=== PATIENT | female | born 1960 | race Caucasian/White ===

== ENCOUNTER 2023-07-07 14:40 | Emergency (ER) | payer MEDICARE ==
[~2023-07-07] VITALS: Ht 160 cm; Wt 61.6 kg
[2023-07-07] MEDS ORDERED: AZO1CAP2 PO (14:57)
[2023-07-07] MEDS ORDERED: METF-838 PO (14:57)
[2023-07-07] MEDS ORDERED: POTA-136 PO (14:57)
[2023-07-07] MEDS ORDERED: ENTR1TAB PO (14:57)
[2023-07-07] MEDS ORDERED: GLIP10TA6 PO (14:57)
[2023-07-07] MEDS ORDERED: ASPI81TA26 PO (14:57)
[2023-07-07] MEDS ORDERED: HYDR-3363 PO (14:57)
[2023-07-07] MEDS ORDERED: CLON0.5T17 PO (14:57)
[2023-07-07] MEDS ORDERED: THERTAB52 PO (14:57)
[2023-07-07] MEDS ORDERED: FARX1TAB3 PO (14:57)
[2023-07-07] MEDS ORDERED: OXYB10TA23 PO (14:57)
[2023-07-07] MEDS ORDERED: ATOR80TA59 PO (14:57)
[2023-07-07] MEDS ORDERED: DULO1CAP4 PO (14:57)
[2023-07-07] MEDS ORDERED: TORS20TA2 PO (14:57)
[2023-07-07] MEDS ORDERED: OMEP40CA4 PO (14:57)
[2023-07-07] MEDS ORDERED: ATEN25TA PO (14:57)
[2023-07-07] MEDS: fentaNYL 100 MCG/2 ML INJECTION IV ONE (17:01)
[2023-07-07 17:08] LABS: HEMATOCRIT 41.6 % (36.0-47.0); HEMOGLOBIN 13.6 g/dl (12.0-15.5); MEAN CORPUSCULAR HEMOGLOBIN 31.8 pg (27.0-33.0); MEAN CORPUSCULAR HGB CONC 32.7 g/dl (32.0-36.5); MEAN CORPUSCULAR VOLUME 97.2 fl (80.0-96.0); PLATELET COUNT, AUTOMATED 235 10^3/uL (150-450); RED BLOOD COUNT 4.28 10^6/uL (4.00-5.40); WHITE BLOOD COUNT 16.7 10^3/uL (4.0-10.0)
[2023-07-07] MEDS: LIDOCAINE 5% (LIDODERM) PATCH TD ONE (17:12)
[2023-07-07 17:38] LABS: BLOOD UREA NITROGEN 22 MG/DL (9-23); CALCIUM LEVEL 9.2 MG/DL (8.3-10.6); CARBON DIOXIDE LEVEL 26 MMOL/L (20-31); CHLORIDE LEVEL 101 MMOL/L (98-107); CREATININE FOR GFR 0.77 MG/DL (0.55-1.30); GLOMERULAR FILTRATION RATE > 60.0 (>45); GLUCOSE, FASTING 126 MG/DL (74-106); POTASSIUM SERUM 4.6 MMOL/L (3.5-5.1); SODIUM LEVEL 137 MMOL/L (136-145)
[2023-07-07] MEDS ORDERED: HYDR-3713 PO (17:48)
[2023-07-07 17:50] VITALS: BP 150/67; TEMP 97.9; O2SAT 98
[2023-07-07] MEDS: MORPHINE 4 MG/ML 1ML VIAL IV ONE (18:03)
[2023-07-07] MEDS: ONDANSETRON 4MG 2ML VIAL IV ONE (18:03)
== END 2023-07-07 18:34 | disposition home or self-care (01) ==
LOC: M ED 14:40
DX: S42.201A Unspecified fracture of upper end of right humerus, initial encounter for closed fracture (principal); Y92.9 Unspecified place or not applicable; Y93.9 Activity, unspecified; Y99.9 Unspecified external cause status; W19.XXXA Unspecified fall, initial encounter; I25.119 Atherosclerotic heart disease of native coronary artery with unspecified angina pectoris; I25.2 Old myocardial infarction; E11.9 Type 2 diabetes mellitus without complications; Z88.8 Allergy status to other drugs, medicaments and biological substances; Z79.899 Other long term (current) drug therapy; Z79.1 Long term (current) use of non-steroidal anti-inflammatories (NSAID); Z79.84 Long term (current) use of oral hypoglycemic drugs; Z79.810 Long term (current) use of selective estrogen receptor modulators (SERMs)
CPT/HCPCS: 73030; 73060; 80048; 85027; 86850; 86900; 86901; 96374; 96375; 99284; J2405; J3010

== ENCOUNTER 2023-07-09 14:58 | Inpatient (IN) | payer MEDICARE ==
[~2023-07-09] VITALS: Ht 157.5 cm; Wt 63.3 kg
[~2023-07-09 14:58] MED LIST: ASPI81TA26 PO; ATEN25TA PO; ATOR80TA59 PO; AZO1CAP2 PO; CLON0.5T17 PO; DULO1CAP4 PO; ENTR1TAB PO; FARX1TAB3 PO; GLIP10TA6 PO; HYDR-3363 PO; HYDR-3713 PO; METF-838 PO; OMEP40CA4 PO; OXYB10TA23 PO; POTA-136 PO; THERTAB52 PO; TORS20TA2 PO
[2023-07-09 16:20] VITALS: BP 181/95; TEMP 98.4; O2SAT 98
[2023-07-09] MEDS ORDERED: ACETAMINOPHEN TAB 650MG DOSE (2X325MG) PO PRN (18:05)
[2023-07-09] MEDS ORDERED: GLUCOSE 4 GM CHEW PO PRN (18:05)
[2023-07-09] MEDS ORDERED: DEXTROSE 50% 50ML SYRINGE IV PRN (18:05)
[2023-07-09] MEDS ORDERED: PERCOCET 5MG/325MG TAB PO PRN (18:05)
[2023-07-09] MEDS ORDERED: GLUCAGON INJ 1MG VIAL SC PRN (18:05)
[2023-07-09] MEDS: MORPHINE 4 MG/ML 1ML VIAL IV PRN (18:40)
[2023-07-09 19:00] LABS: BASO % 0.3 % (0.0-1.0); EOS # 0.3 10^3/uL (0.0-0.5); EOS % 2.2 % (0.0-3.0); HEMATOCRIT 37.9 % (36.0-47.0); HEMOGLOBIN 12.6 g/dl (12.0-15.5); LYMPH # 2.2 10^3/uL (1.5-5.0); LYMPH % 19.3 % (24.0-44.0); MEAN CORPUSCULAR HEMOGLOBIN 32.6 pg (27.0-33.0); MEAN CORPUSCULAR HGB CONC 33.2 g/dl (32.0-36.5); MEAN CORPUSCULAR VOLUME 98.2 fl (80.0-96.0); MONO # 0.7 10^3/uL (0.0-0.8); NEUTROPHILS # 8.3 10^3/uL (1.5-8.5); NEUTROPHILS % 71.9 % (36.0-66.0); PLATELET COUNT, AUTOMATED 233 10^3/uL (150-450); RED BLOOD COUNT 3.86 10^6/uL (4.00-5.40); WHITE BLOOD COUNT 11.6 10^3/uL (4.0-10.0)
[2023-07-09 19:11] LABS: INR 0.93; PROTHROMBIN TIME 12.2 SECONDS (12.5-14.5)
[2023-07-09 19:24] LABS: ALBUMIN 3.5 G/DL (3.2-5.2); ALKALINE PHOSPHATASE 150 U/L (46-116); ALT/SGPT 88 U/L (7.0-40); AST/SGOT 131 U/L (<34); BILIRUBIN,TOTAL 0.3 MG/DL (0.3-1.2); BLOOD UREA NITROGEN 24 MG/DL (9-23); CALCIUM LEVEL 9.3 MG/DL (8.3-10.6); CARBON DIOXIDE LEVEL 25 MMOL/L (20-31); CHLORIDE LEVEL 102 MMOL/L (98-107); CREATININE FOR GFR 0.87 MG/DL (0.55-1.30); GLOMERULAR FILTRATION RATE > 60.0 (>45); GLUCOSE, FASTING 76 MG/DL (74-106); MAGNESIUM LEVEL 1.6 MG/DL (1.8-2.4); PHOSPHORUS LEVEL 3.1 MG/DL (2.4-5.1); POTASSIUM SERUM 4.3 MMOL/L (3.5-5.1); SODIUM LEVEL 136 MMOL/L (136-145); TOTAL PROTEIN 6.7 G/DL (5.7-8.2)
[2023-07-09] MEDS ORDERED: atenoloL 50 MG TAB PO ONE (19:45)
[2023-07-09 20:00] VITALS: BP 178/89; TEMP 98.1; O2SAT 98
[2023-07-09] MEDS ORDERED: HYDROMORPHONE HCL 0.5 MG/ 0.5 ML SYRINGE IV PRN (20:35)
[2023-07-09] MEDS: INSULIN LISPRO (NovoLOG) PER UNIT SC SCH (21:00)
[2023-07-09] MEDS: TORSEMIDE 20 MG TAB PO ONE (21:22)
[2023-07-09] MEDS: HYDROMORPHONE HCL 0.5 MG/ 0.5 ML SYRINGE IV PRN (21:24)
[2023-07-09] MEDS: MAG SULF 1GM/100ML (MAG RUN) 1 GM in IV 1 EA IV SCH (21:24)
[2023-07-09] MEDS ORDERED: HYDR-4571 PO (21:37)
[2023-07-09] MEDS ORDERED: HOME MED LIST COMPLETE! XX SCH (21:50)
[2023-07-09] MEDS: ATORVASTATIN 20 MG TAB PO SCH (22:56)
[2023-07-09] MEDS: DULoxetine 20MG CAP (CYMBALTA) PO ONE (22:56)
[2023-07-09] MEDS: ENTRESTO 24-26MG TABLET (SACUBITRIL/VALSARTAN) PO ONE (22:58)
[2023-07-09] MEDS: atenoloL 25 MG TAB PO SCH (22:58)
[2023-07-10] VITALS (8 sets, daily range): BP systolic 99–165; BP diastolic 50–81; TEMP 97.3–98.1; O2SAT 90–96
[2023-07-10] MEDS: METHOCARBAMOL 1,000 MG/10 ML VIAL IV ONE
[2023-07-10] MEDS: LIDOCAINE 5% (LIDODERM) PATCH TD SCH (00:53)
[2023-07-10] MEDS: clonazePAM 0.5 MG TAB PO PRN (01:33)
[2023-07-10] MEDS: INSULIN LISPRO (NovoLOG) PER UNIT SC SCH (07:30)
[2023-07-10] MEDS: MIDAZOLAM INJ 2MG/2ML VIAL IV PRN (08:43)
[2023-07-10] MEDS: fentaNYL 100 MCG/2 ML INJECTION IV PRN (08:43)
[2023-07-10] MEDS ORDERED: fentaNYL 100 MCG/2 ML INJECTION As Ordered ONE (08:45)
[2023-07-10] MEDS ORDERED: MIDAZOLAM INJ 2MG/2ML VIAL As Ordered ONE (08:45)
[2023-07-10] MEDS: dexAMETHasone 10MG/1ML VIAL PRES.FREE PN ONE (08:54)
[2023-07-10] MEDS: ROPIvacaine 0.5% 30ML VIAL PN ONE (08:54)
[2023-07-10] MEDS: DOCUSATE SODIUM 100MG CAPSULE PO SCH (09:00)
[2023-07-10] MEDS: OMEPRAZOLE 20MG CAP PO SCH (09:00)
[2023-07-10] MEDS: ceFAZolin 2 GM/D5W 50 ML IV BAG As Ordered ONE (09:40)
[2023-07-10] MEDS ORDERED: GLYCOPYRROLATE INJ 0.2 MG/ML 2 ML VIAL As Ordered ONE (09:53)
[2023-07-10] MEDS ORDERED: ePHEDrine SULFATE 25 MG/5 ML(5MG/ML) SYRINGE As Ordered ONE (09:57)
[2023-07-10] MEDS ORDERED: VASOPRESSIN INJ 20UNITS/ML 1ML VIAL As Ordered ONE (09:57)
[2023-07-10] MEDS ORDERED: PHENYLephrine 500MCG 5ML (100MCG/ML) SYRINGE As Ordered ONE (10:09)
[2023-07-10] MEDS: LIDOCAINE W/EPINEPHRINE 1% 20ML VIAL As Ordered ONE (10:15)
[2023-07-10] MEDS ORDERED: PHENYLEPHRINE 10MG/ML 1ML VIAL As Ordered ONE (10:58)
[2023-07-10] MEDS: VANCOMYCIN 500MG/10ML VIAL As Ordered ONE (11:30)
[2023-07-10] MEDS: TRANEXAMIC ACID 100 MG/ML 10ML VIAL As Ordered ONE (11:30)
[2023-07-10] MEDS ORDERED: KETOROLAC 60MG 2ML VIAL As Ordered ONE (12:04)
[2023-07-10] MEDS ORDERED: ONDANSETRON 4MG 2ML VIAL As Ordered ONE (12:05)
[2023-07-10] MEDS ORDERED: MEPERIDINE 25 MG/ML 1ML VIAL IV PRN (12:30)
[2023-07-10] MEDS: LR 1,000 ML IV SCH (12:30)
[2023-07-10] MEDS ORDERED: diphenhydrAMINE 50MG/ML VIAL IV PRN ×2 (12:30→13:10)
[2023-07-10] MEDS ORDERED: METOCLOPRAMIDE INJ 10MG/2ML VIAL IV PRN (12:30)
[2023-07-10] MEDS ORDERED: fentaNYL 100 MCG/2 ML INJECTION IV PRN (12:30)
[2023-07-10] MEDS ORDERED: ONDANSETRON 4MG 2ML VIAL IV PRN ×2 (12:30→13:10)
[2023-07-10] MEDS ORDERED: HYDROMORPHONE HCL 0.5 MG/ 0.5 ML SYRINGE IV PRN (12:30)
[2023-07-10] MEDS ORDERED: ACETAMINOPHEN TAB 650MG DOSE (2X325MG) PO PRN (13:10)
[2023-07-10] MEDS ORDERED: oxyCODONE 5MG TAB PO PRN (13:10)
[2023-07-10] MEDS: ceFAZolin SOD 2 GM in IV 1 EA IV SCH (14:44)
[2023-07-10] MEDS ORDERED: PILL CUTTER 1 EACH XX ONE (15:20)
[2023-07-10] MEDS: HYDROmorphone 2 MG TAB PO PRN (15:23)
[2023-07-10] MEDS: TORSEMIDE 20 MG TAB PO SCH (17:00)
[2023-07-10] MEDS: KETOROLAC 30 MG/ML 1ML VIAL IV SCH (17:58)
[2023-07-10] MEDS: MORPHINE 4 MG/ML 1ML VIAL IV PRN (17:59)
[2023-07-10] MEDS: ENTRESTO 24-26MG TABLET (SACUBITRIL/VALSARTAN) PO SCH (20:56)
[2023-07-10] MEDS: DULoxetine 20MG CAP (CYMBALTA) PO SCH (20:58)
[2023-07-11] VITALS (8 sets, daily range): BP systolic 121–145; BP diastolic 47–81; TEMP 97.6–97.9; O2SAT 95–97
[2023-07-11] MEDS: zolPIDEM TARTRATE 5 MG TAB PO PRN (03:22)
[2023-07-11 06:28] LABS: BASO % 0.2 % (0.0-1.0); EOS % 0.4 % (0.0-3.0); LYMPH # 0.9 10^3/uL (1.5-5.0); LYMPH % 9.1 % (24.0-44.0); MEAN CORPUSCULAR HEMOGLOBIN 32.3 pg (27.0-33.0); MEAN CORPUSCULAR HGB CONC 34.1 g/dl (32.0-36.5); MEAN CORPUSCULAR VOLUME 94.7 fl (80.0-96.0); MONO # 0.7 10^3/uL (0.0-0.8); MONO % 6.9 % (2.0-8.0); NEUTROPHILS # 8.6 10^3/uL (1.5-8.5); NEUTROPHILS % 83.1 % (36.0-66.0); PLATELET COUNT, AUTOMATED 183 10^3/uL (150-450); RED BLOOD COUNT 3.03 10^6/uL (4.00-5.40); WHITE BLOOD COUNT 10.3 10^3/uL (4.0-10.0)
[2023-07-11 06:30] LABS: HEMATOCRIT 28.7 % (36.0-47.0); HEMOGLOBIN 9.8 g/dl (12.0-15.5)
[2023-07-11 06:46] LABS: ALBUMIN 2.5 G/DL (3.2-5.2); ALKALINE PHOSPHATASE 277 U/L (46-116); ALT/SGPT 658 U/L (7.0-40); AST/SGOT 661 U/L (<34); BILIRUBIN,TOTAL 0.3 MG/DL (0.3-1.2); BLOOD UREA NITROGEN 40 MG/DL (9-23); CALCIUM LEVEL 8.4 MG/DL (8.3-10.6); CARBON DIOXIDE LEVEL 28 MMOL/L (20-31); CHLORIDE LEVEL 97 MMOL/L (98-107); GLOMERULAR FILTRATION RATE 53.4 (>45); GLUCOSE, FASTING 204 MG/DL (74-106); MAGNESIUM LEVEL 1.7 MG/DL (1.8-2.4); POTASSIUM SERUM 4.1 MMOL/L (3.5-5.1); SODIUM LEVEL 134 MMOL/L (136-145)
[2023-07-11 08:14] LABS: HEPATITIS B CORE ANTIBODY IGM NEGATIVE (NEGATIVE)
[2023-07-11 08:15] LABS: HEPATITIS C VIRUS ABY INDEX < 0.02 INDEX (<0.8)
[2023-07-11] MEDS: ASPIRIN 81MG ENTERIC TABLET PO SCH (09:05)
[2023-07-11] MEDS: oxyBUTYnin *DITROPAN XL* 5 MG TABCR PO SCH (09:05)
[2023-07-11] MEDS: MAGNESIUM OXIDE 400MG TAB (MAG-OX) PO ONE (09:17)
[2023-07-11] MEDS ORDERED: CYCLOBENZAPRINE 5MG TABLET PO PRN (11:35)
[2023-07-11] MEDS: SENNA 8.6 MG TAB (SENOKOT) PO PRN (13:06)
[2023-07-11] MEDS: PREGABALIN 75 MG CAP(LYRICA) PO SCH (13:06)
[2023-07-11] MEDS: DULoxetine 20MG CAP (CYMBALTA) PO SCH (14:18)
[2023-07-11] MEDS: CYCLOBENZAPRINE 5MG TABLET PO SCH (14:18)
[2023-07-11 14:47] LABS: ALBUMIN 2.7 G/DL (3.2-5.2); BILIRUBIN,DIRECT 0.1 MG/DL (<0.4); BILIRUBIN,TOTAL 0.3 MG/DL (0.3-1.2); TOTAL PROTEIN 5.4 G/DL (5.7-8.2)
[2023-07-11 15:12] LABS: HEMOGLOBIN 10.4 g/dl (12.0-15.5); MEAN CORPUSCULAR HEMOGLOBIN 32.3 pg (27.0-33.0); MEAN CORPUSCULAR HGB CONC 33.5 g/dl (32.0-36.5); MEAN CORPUSCULAR VOLUME 96.3 fl (80.0-96.0); PLATELET COUNT, AUTOMATED 218 10^3/uL (150-450); RED BLOOD COUNT 3.22 10^6/uL (4.00-5.40); WHITE BLOOD COUNT 9.5 10^3/uL (4.0-10.0)
[2023-07-11] MEDS: HYDROMORPHONE HCL 0.5 MG/ 0.5 ML SYRINGE IV PRN (16:07)
[2023-07-11] MEDS: KETOROLAC 30 MG/ML 1ML VIAL IV SCH (18:10)
[2023-07-11] MEDS: CLINDAMYCIN 900 MG in IV 1 EA IV SCH (18:20)
[2023-07-12 05:45] VITALS: BP 133/59; TEMP 97.7; O2SAT 94
[2023-07-12 06:05] LABS: BASO % 0.4 % (0.0-1.0); EOS # 0.2 10^3/uL (0.0-0.5); EOS % 3.3 % (0.0-3.0); HEMATOCRIT 31.4 % (36.0-47.0); HEMOGLOBIN 10.5 g/dl (12.0-15.5); LYMPH # 1.5 10^3/uL (1.5-5.0); LYMPH % 22.2 % (24.0-44.0); MEAN CORPUSCULAR HEMOGLOBIN 32.8 pg (27.0-33.0); MEAN CORPUSCULAR HGB CONC 33.4 g/dl (32.0-36.5); MEAN CORPUSCULAR VOLUME 98.1 fl (80.0-96.0); MONO # 0.4 10^3/uL (0.0-0.8); MONO % 5.9 % (2.0-8.0); NEUTROPHILS # 4.7 10^3/uL (1.5-8.5); NEUTROPHILS % 67.9 % (36.0-66.0); PLATELET COUNT, AUTOMATED 206 10^3/uL (150-450); WHITE BLOOD COUNT 6.9 10^3/uL (4.0-10.0)
[2023-07-12 06:34] LABS: ALBUMIN 2.5 G/DL (3.2-5.2); BILIRUBIN,TOTAL 0.3 MG/DL (0.3-1.2); CALCIUM LEVEL 8.3 MG/DL (8.3-10.6); CREATININE FOR GFR 1.01 MG/DL (0.55-1.30); GLOMERULAR FILTRATION RATE 58.9 (>45); MAGNESIUM LEVEL 1.7 MG/DL (1.8-2.4); POTASSIUM SERUM 3.9 MMOL/L (3.5-5.1); TOTAL PROTEIN 5.2 G/DL (5.7-8.2)
[2023-07-12] MEDS ORDERED: CYCL5TAB PO (11:32)
[2023-07-12] MEDS ORDERED: SENO8.6T5 PO (11:32)
[2023-07-12] MEDS ORDERED: COLA100C5 PO (11:32)
[2023-07-12] MEDS ORDERED: LYRI75CA PO (11:32)
[2023-07-12] MEDS ORDERED: OXYC10TA12 PO (11:32)
[2023-07-12] MEDS ORDERED: DULO1CAP4 PO (11:32)
[2023-07-12] MEDS ORDERED: LIDO5TD TD (11:32)
[2023-07-12 14:00] VITALS: BP 119/48; TEMP 97.2; O2SAT 95
== END 2023-07-12 16:02 | disposition home or self-care (01) | DRG 494 ==
LOC: M MSPAV 16:06 → OBSVTOIN 07-11 19:06
PROVIDERS: ADMIT Internal Medicine; ATTEND Internal Medicine
PROC: 0PSC04Z Reposition Right Humeral Head with Internal Fixation Device, Open Approach (ICD-10-PCS; principal; 2023-07-10 09:00)
DX: S42.251A Displaced fracture of greater tuberosity of right humerus, initial encounter for closed fracture (principal); S42.211A Unspecified displaced fracture of surgical neck of right humerus, initial encounter for closed fracture; S42.291A Other displaced fracture of upper end of right humerus, initial encounter for closed fracture; I50.9 Heart failure, unspecified; I25.10 Atherosclerotic heart disease of native coronary artery without angina pectoris; E78.5 Hyperlipidemia, unspecified; E11.51 Type 2 diabetes mellitus with diabetic peripheral angiopathy without gangrene; I11.0 Hypertensive heart disease with heart failure; K59.00 Constipation, unspecified; F41.9 Anxiety disorder, unspecified; K21.9 Gastro-esophageal reflux disease without esophagitis; K75.81 Nonalcoholic steatohepatitis (NASH); R74.01 Elevation of levels of liver transaminase levels; I25.5 Ischemic cardiomyopathy; Z79.82 Long term (current) use of aspirin; Z85.528 Personal history of other malignant neoplasm of kidney; Z90.5 Acquired absence of kidney; Z79.84 Long term (current) use of oral hypoglycemic drugs; Z95.1 Presence of aortocoronary bypass graft; Z86.73 Personal history of transient ischemic attack (TIA), and cerebral infarction without residual deficits; Z98.62 Peripheral vascular angioplasty status; Z90.49 Acquired absence of other specified parts of digestive tract; Z79.899 Other long term (current) drug therapy; Z87.891 Personal history of nicotine dependence; Z88.8 Allergy status to other drugs, medicaments and biological substances; W19.XXXA Unspecified fall, initial encounter; Y93.9 Activity, unspecified; Y92.009 Unspecified place in unspecified non-institutional (private) residence as the place of occurrence of the external cause; Y99.8 Other external cause status

== ENCOUNTER 2023-07-22 21:08 | Emergency (ER) | payer MEDICARE ==
[~2023-07-22] VITALS: Ht 165.1 cm; Wt 61.1 kg
[~2023-07-22 21:08] MED LIST changes: +COLA100C5 PO; +CYCL5TAB PO; +HYDR-4571 PO; +LIDO5TD TD; +LYRI75CA PO; +OXYC10TA12 PO; +SENO8.6T5 PO
[2023-07-23 01:05] LABS: BASO % 0.4 % (0.0-1.0); EOS # 0.1 10^3/uL (0.0-0.5); EOS % 1.8 % (0.0-3.0); HEMATOCRIT 36.7 % (36.0-47.0); HEMOGLOBIN 11.9 g/dl (12.0-15.5); LYMPH # 1.6 10^3/uL (1.5-5.0); LYMPH % 19.5 % (24.0-44.0); MEAN CORPUSCULAR HEMOGLOBIN 32.5 pg (27.0-33.0); MEAN CORPUSCULAR HGB CONC 32.4 g/dl (32.0-36.5); MEAN CORPUSCULAR VOLUME 100.3 fl (80.0-96.0); MONO # 0.4 10^3/uL (0.0-0.8); MONO % 4.5 % (2.0-8.0); NEUTROPHILS # 5.9 10^3/uL (1.5-8.5); NEUTROPHILS % 73.5 % (36.0-66.0); PLATELET COUNT, AUTOMATED 323 10^3/uL (150-450); RED BLOOD COUNT 3.66 10^6/uL (4.00-5.40)
[2023-07-23 01:27] LABS: LIPASE 22 U/L (12-53)
[2023-07-23 01:31] LABS: ALBUMIN 3.1 G/DL (3.2-5.2); ALKALINE PHOSPHATASE 174 U/L (46-116); ALT/SGPT 48 U/L (7.0-40); AST/SGOT 18 U/L (<34); BILIRUBIN,DIRECT 0.2 MG/DL (<0.4); BILIRUBIN,TOTAL 0.6 MG/DL (0.3-1.2); BLOOD UREA NITROGEN 17 MG/DL (9-23); CARBON DIOXIDE LEVEL 27 MMOL/L (20-31); CHLORIDE LEVEL 103 MMOL/L (98-107); CREATININE FOR GFR 0.77 MG/DL (0.55-1.30); GLOMERULAR FILTRATION RATE > 60.0 (>45); GLUCOSE, FASTING 130 MG/DL (74-106); POTASSIUM SERUM 3.9 MMOL/L (3.5-5.1); SODIUM LEVEL 140 MMOL/L (136-145); TOTAL PROTEIN 6.8 G/DL (5.7-8.2)
[2023-07-23] MEDS: NS 1,000 ML IV ONE (01:41)
[2023-07-23] MEDS: GLUCAGON INJ 1MG VIAL IV STA (01:54)
[2023-07-23 04:30] VITALS: TEMP 97.8
[2023-07-23 05:30] VITALS: BP 185/87; O2SAT 98
== END 2023-07-23 05:51 | disposition home or self-care (01) ==
LOC: M ED 21:08
DX: T18.108A Unspecified foreign body in esophagus causing other injury, initial encounter (principal); Z88.8 Allergy status to other drugs, medicaments and biological substances; Z79.1 Long term (current) use of non-steroidal anti-inflammatories (NSAID); Z79.4 Long term (current) use of insulin; Z79.84 Long term (current) use of oral hypoglycemic drugs; Z79.810 Long term (current) use of selective estrogen receptor modulators (SERMs); Z79.899 Other long term (current) drug therapy
CPT/HCPCS: 80048; 80076; 83690; 85025; 96374; 99284; J1610

== ENCOUNTER 2023-07-23 07:00 | Day surgery (SDC) | payer MEDICARE ==
[~2023-07-23] VITALS: Ht 165.1 cm; Wt 62.0 kg
[2023-07-23] MEDS ORDERED: E-Z-PAQUE 96% w/w SUSP 176GM BTL As Ordered ONE (11:34)
[2023-07-23] MEDS ORDERED: BARIUM SULFATE 700 MG TABLET (E-Z-DISK) As Ordered ONE (11:35)
[2023-07-23] MEDS ORDERED: E-Z-HD 98% w/w 340GM SUSP BTL As Ordered ONE (11:35)
[2023-07-23] MEDS ORDERED: E-Z-GAS II EFFERVESCENT PACKET (SODIUM BICARB./CITRIC ACID/SIMETHICONE) As Ordered ONE (11:35)
[2023-07-23] MEDS ORDERED: propofoL 200 MG/20 ML VIAL As Ordered ONE (12:35)
[2023-07-23] MEDS ORDERED: propofoL 500 MG/50 ML VIAL As Ordered ONE (12:35)
[2023-07-23] MEDS ORDERED: GLYCOPYRROLATE INJ 0.2 MG/ML 2 ML VIAL As Ordered ONE (12:47)
[2023-07-23] MEDS ORDERED: KETAMINE HCL 200MG/20ML VIAL As Ordered ONE (12:47)
[2023-07-23] MEDS: ONDANSETRON 4MG 2ML VIAL IV ONE (12:52)
[2023-07-23] MEDS: HYDROcodone/APAP LIQUID 7.5-325MG 15ML UDC (LORTAB ELIXIR) PO ONE (15:17)
[2023-07-23 16:30] VITALS: BP 152/70; TEMP 97.6; O2SAT 100
== END 2023-07-23 16:51 | disposition home or self-care (01) ==
LOC: M ED 07:00 → M SDC 14:38
PROVIDERS: ATTEND Surgery
DX: T18.128A Food in esophagus causing other injury, initial encounter (principal); K92.2 Gastrointestinal hemorrhage, unspecified; W44.F3XA Food entering into or through a natural orifice, initial encounter; E11.9 Type 2 diabetes mellitus without complications; I10 Essential (primary) hypertension; I25.10 Atherosclerotic heart disease of native coronary artery without angina pectoris; I25.2 Old myocardial infarction; E78.5 Hyperlipidemia, unspecified; Z79.899 Other long term (current) drug therapy; Z79.82 Long term (current) use of aspirin; Z79.84 Long term (current) use of oral hypoglycemic drugs; Z86.73 Personal history of transient ischemic attack (TIA), and cerebral infarction without residual deficits; Z86.16 Personal history of COVID-19; Z88.8 Allergy status to other drugs, medicaments and biological substances
CPT/HCPCS: 43247; 74220; 99284; J2405

== ENCOUNTER → 2023-07-24 | Outpatient (CLI) | payer MEDICARE | LOC: M SOG 13:04 | PROVIDERS: ATTEND Physician Assistant | DX: S42.201A Unspecified fracture of upper end of right humerus, initial encounter for closed fracture (principal); W18.30XA Fall on same level, unspecified, initial encounter; Y92.009 Unspecified place in unspecified non-institutional (private) residence as the place of occurrence of the external cause ==

== ENCOUNTER → 2023-08-14 | Outpatient (CLI) | payer MEDICARE | LOC: M SOG 08:03 | PROVIDERS: ATTEND Physician Assistant | DX: S42.201A Unspecified fracture of upper end of right humerus, initial encounter for closed fracture (principal); W18.30XA Fall on same level, unspecified, initial encounter; Y92.009 Unspecified place in unspecified non-institutional (private) residence as the place of occurrence of the external cause ==